=== PATIENT | male | born 1935 | race Caucasian/White ===

== ENCOUNTER → 2017-10-20 | Outpatient (CLI) | payer MEDICARE, BC ==
[~2017-10-20] MED LIST: CEP500 PO; LOR5 PO; NO MEDS
--- NOTE | 2017-10-20 14:10 | RADIOLOGY IMAGING REPORT ---
FACILITY: [facility] PATIENT NAME: John Cruz : 1935 MR: [id number] V: [id number] EXAM DATE: ORDERING PHYSICIAN: [facility] TECHNOLOGIST: Location: [facility] Patient: John Cruz : 1935 Visit/Account:[id number] Date of Sevice: 10/20/2017 KIDNEYS EXAMINATION: Renal ultrasound. History: Urine retention, fluid retention, hyperbilirubinemia COMPARISON STUDIES: FINDINGS: Kidneys: Right kidney- 12.9 x 5.1 x 4.8 cm Left kidney- 12.70 6.8 x 5.8 cm Uniform and symmetric blood flow in each kidney by Doppler ultrasound. Hydronephrosis: none Resistive index on the right 0.66 on the left 0.74. There are two cysts in the left kidney the super ior lateral cyst measures 5.8 series in diameter. The inferolateral cyst measures 1.9 cm in diameter Bladder: There is irregular echogenic thickening seen along the anterior bladder wall. Bilateral ure teral jets are identified. The urinary bladder prevoid volume was 153 mL. Post for residual 4.3 mL. Prostate gland contains calcifications. Abdominal aorta and IVC: Aorta and IVC are patent by Doppler ultrasound. IMPRESSION: Two left renal cysts as described above Echogenic irregular bladder wall thickening seen along the floor. Cystoscopy may be helpful Prostate is heterogeneous and contains calcifications Report Dictated By: Belkis Castle MD at 10/20/2017 2:03 PM Report E-Signed By: Belkis Castle MD at 10/20/2017 2:06 PM WSN:[email or web address]
== END ==
LOC: US 10-17 07:03
PROVIDERS: ATTEND Internal Medicine Cardiovascular Disease
DX: N28.1 Cyst of kidney, acquired (principal); N32.9 Bladder disorder, unspecified; N42.9 Disorder of prostate, unspecified
CPT/HCPCS: 76705

== ENCOUNTER → 2018-11-08 | Outpatient (CLI) | payer MEDICARE, BC ==
--- NOTE | 2018-11-08 13:48 | RADIOLOGY IMAGING REPORT ---
FACILITY: [facility] [place] PATIENT NAME: John Cruz : 1935 MR: [id number] V: [id number] EXAM DATE: ORDERING PHYSICIAN: MANOJ MOSES TECHNOLOGIST: Location: [facility] [place] Patient: John Cruz : 1935 Visit/Account:[id number] Date of Sevice: 11/08/2018 CT CHEST W/O CONTRAST History: Right lung nodule TECHNIQUE: Contiguous axial images were performed through the chest to the level of the adrenal gla nds. No IV contrast was administered. Coronal and sagittal reformatting was also performed.Dose Lower ing Technique One of the following dose optimization techniques was utilized in the performance of this exam: Autom ated exposure control; adjustment of the mA and/or kV according to the patient's size; or use of an i terative reconstruction technique. Specific details can be referenced in the facility's radiology C T exam operational policy. COMPARISON STUDIES: none. Lungs / Pleura: There mild emphysematous changes seen throughout the lungs. Mild linear stranding in the posterior right upper lobe likely represents scarring. There is a 7 mm slightly irregular calcified nodule anterior medial right upper lobe best seen on paola ge 40 of series 2. There is an 8 x 4 mm noncalcified nodule posterior aspect the right lower lobe best seen on image 73. There are several adjacent tiny calcified satellite nodules. Small ground glass opacity medial right lower lobe best seen on image 81. There is minimal airspace consolidation posterior sulcus of the right lower lobe There is a small to moderate posterior layering left pleural effusion which is partially loculated in the major fissure. Coarse linear stranding in the lingula and left lower lobe may represent scarrin g versus atelectasis Mediastinum/nodes: There calcified AP window, precarinal and right hilar lymph nodes Heart and vessels: There are moderate atherosclerotic calcifications in the thoracic aorta and branc h vessels. Moderate to severe calcination occasions identified in the coronary arteries. Calcificat ion's are noted at the aortic root. Ascending thoracic aorta mildly dilated 4.2 x 4 cm Musculoskeletal / Body wall: Extensive spondylotic changes in the thoracic spine Upper abdomen: 2.4 x 1.5 cm hypoattenuating mass posterior inferior spleen contain a small punctate mural calcification. CT Hounsfield units suggest this is a cyst. Incompletely imaged is a large cy st projecting from the upper pole of the left kidney measuring 5.4 cm in maximum visualized dimension . There are peripheral calcifications extensive vascular calcifications in the visualized upper abdo men also noted IMPRESSION: Mild emphysematous changes but the lungs Multiple calcified pulmonary nodules in the right lung calcified mediastinal and right hilar adenopat hy consistent with prior granulomatous process There is an 8 x 4 mm noncalcified nodule posterior aspect the right lower lobe as described above Small to moderate posterior layering left pleural effusion which is partially loculated in the major fissure Scarring versus atelectasis identified in the lingula right upper lobe and both lower lobes. 2.4 x 1.5 cm hypoattenuating mass posterior inferior spleen with a small punctate calcification. CT Hounsfield units suggest this is a cyst Incompletely imaged is a large cyst projecting from the upper pole the left kidney containing periphe ral calcifications. This could be further evaluated with dedicated CT or MR the kidneys Report Dictated By: Belkis Castle MD at 11/08/2018 1:26 PM Report E-Signed By: Belkis Castle MD at 11/08/2018 1:40 PM WSN:[email or web address]
== END ==
LOC: CT 10-29 04:12
PROVIDERS: ATTEND Internal Medicine Nephrology
DX: R91.8 Other nonspecific abnormal finding of lung field (principal); J90 Pleural effusion, not elsewhere classified
CPT/HCPCS: 71250